=== PATIENT | male | born 1985 | race Caucasian/White ===

== ENCOUNTER 2018-10-17 19:58 | Emergency (ER) | payer MEDICAID ==
[~2018-10-17] VITALS: Ht 170.2 cm; Wt 83.0 kg
[2018-10-17 20:00] VITALS: BP 107/84
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
[2018-10-17] MEDS ORDERED: LORazepam 1MG TABLET PO ONE (20:30)
[2018-10-17] MEDS ORDERED: PLEASE ENTER ALLERGIES MC SCH (20:30)
[2018-10-17] MEDS ORDERED: LORazepam 1MG TABLET ONE (20:33)
[2018-10-17 20:39] LABS: BASOPHILS # (AUTO) 0.06 x10^3/uL (0-0.1); BASOPHILS % (AUTO) 1 % (0-1); EOSINOPHILS # (AUTO) 0.02 x10^3/uL (0-0.4); EOSINOPHILS % (AUTO) 0 % (1-7); LYMPHOCYTES # (AUTO) 1.38 x10^3/uL (1-3.4); LYMPHOCYTES % (AUTO) 19 % (22-44); MD NO; MEAN CORPUSCULAR HEMOGLOBIN 30.5 pg (27.5-34.5); MEAN CORPUSCULAR HGB CONC 33.7 g/dL (33.2-36.2); MEAN CORPUSCULAR VOLUME 90.7 fL (81-97); MEAN PLATELET VOLUME 8.1 fL (7.4-10.4); MONOCYTES # (AUTO) 0.56 x10^3/uL (0.2-0.8); MONOCYTES % (AUTO) 8 % (2-9); NEUTROPHILS # (AUTO) 5.18 x10^3/uL (1.8-6.8); NEUTROPHILS % (AUTO) 72 % (42-75); PLATELET COUNT 280 x10^3/uL (130-400); RED BLOOD COUNT 4.99 x10^6/uL (4.38-5.82)
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
[2018-10-17] MEDS ORDERED: SERT100T PO (20:41)
[2018-10-17] MEDS ORDERED: BUSP10TA PO (20:41)
[2018-10-17 20:44] LABS: ALBUMIN 4.3 g/dL (3.4-5.0); ANION GAP 9 mmol/L (5-15); CALCIUM 9.3 mg/dL (8.5-10.1); CHLORIDE 106 mmol/L (98-107)
[2018-10-17 20:45] LABS: SALICYLATE LEVEL < 1.7 mg/dL (2.8-20.0)
--- NOTE | 2018-10-17 21:05 | NUR ---
REPORT TO BILL ALMARAZ
[2018-10-17 21:21] LABS: AMPHETAMINE SCREEN, URINE Positive (Negative); BARBITURATE SCREEN, URINE Negative (Negative); BENZODIAZEPINE SCREEN, URINE Negative (Negative); CANNABINOID SCREEN, URINE Negative (Negative); COCAINE SCREEN, URINE Negative (Negative); METHADONE SCREEN, URINE Negative (Negative); OPIATE SCREEN, URINE Negative (Negative)
--- NOTE | 2018-10-17 21:34 | NUR ---
PT PACING IN ROOM, STANDING IN DOORWAY. PT INSTRUCTED TO STAY IN ROOM FOR PT PRIVACY. UA COLLECTED AND SENT TO LAB.
--- NOTE | 2018-10-17 22:53 | NUR ---
PT USING PHONE NEAR DISCHARGE DESK.
== END 2018-10-17 23:35 | disposition home or self-care (01) ==
LOC: ED 23:00
DX: F41.1 Generalized anxiety disorder (principal); F15.10 Other stimulant abuse, uncomplicated; Z91.013 Allergy to seafood
CPT/HCPCS: 36415; 80048; 80307; 82040; 85025; 93005; 99284